=== PATIENT | female | born 1980 | race Caucasian/White ===

== ENCOUNTER 2023-11-28 10:12 | Emergency (ER) | payer SELFPAY ==
[2023-11-28 10:27] VITALS: BP 132/61; PULSE 93; RESP 18; TEMP 98; BMI 33.9
[2023-11-28] MEDS ORDERED: KETOROLAC TROMETHAMINE 30 MG/1 ML VIAL ONE (11:03)
[2023-11-28] MEDS: KETOROLAC TROMETHAMINE 30 MG/1 ML VIAL IM ONE (11:07)
== END 2023-11-28 12:20 | disposition home or self-care (01) ==
LOC: JERFT 10:12
PROC: 0U9MXZZ Drainage of Vulva, External Approach (ICD-10-PCS; principal; 2023-11-28)
PROC: 3E023GC Introduction of Other Therapeutic Substance into Muscle, Percutaneous Approach (ICD-10-PCS; 2023-11-28)
DX: N75.0 Cyst of Bartholin's gland (principal)
CPT/HCPCS: 99284-25